=== PATIENT | female | born 1955 | race Two or more races ===

== ENCOUNTER 2018-09-18 04:52 | Day surgery (SDC) | payer OTHER | END 2018-09-18 11:30 | disposition home or self-care (01) | LOC: CIR.AMB 04:52 | DX: K80.10 Calculus of gallbladder with chronic cholecystitis without obstruction (principal) ==

== ENCOUNTER 2021-02-16 14:39 | Emergency (ER) | payer OTHER ==
[~2021-02-16] VITALS: Ht 193 cm; Wt 93.0 kg
[2021-02-16] MEDS ORDERED: VITAMIN D210 MCG (15:20)
[2021-02-16] MEDS ORDERED: ZITHROMAX500 MG PO (18:58)
[2021-02-16] MEDS ORDERED: DICLOFENAC POTA50 MG PO (18:58)
== END 2021-02-16 19:43 ==
LOC: ER 14:39
DX: J02.9 Acute pharyngitis, unspecified (principal); H66.91 Otitis media, unspecified, right ear